=== PATIENT | male | born 1965 | race Caucasian/White ===

== ENCOUNTER 2018-12-27 12:32 | Emergency (ER) | payer OTHER ==
--- NOTE | 2018-12-27 12:50 | ER Document Report ---
ED Medical Screen (RME) - General Chief Complaint: Urinary Problem Stated Complaint: URINE PROBLEMS Time Seen by Provider: 12/27/18 12:40 Mode of Arrival: Ambulatory Information source: Patient Notes: Patient presents to the emergency department with complaints of hematuria for the past few days. Denies abdominal pain. Denies fever vomiting diarrhea. Reports a slight burning when he voids. Denies testicular pain. Gives history of melanoma and gallstones. Reports he takes medication for high blood pressure. Also reports that he recently used a device that assisted him to be to intimate with his and wraps around his penis. I have greeted and performed a rapid initial assessment of this patient. A comprehensive ED assessment and evaluation of the patient, analysis of test results and completion of the medical decision making process will be conducted by additional ED providers. Dictation of this chart was performed using voice recognition software; therefore, there may be some unintended grammatical errors. TRAVEL OUTSIDE OF THE [place] IN LAST 30 DAYS: No - Related Data Allergies/Adverse Reactions: No Known Allergies Allergy (Verified 12/27/18 12:33) Past Medical History - Social History Chew tobacco use (# tins/day): No Frequency of alcohol use: None Drug Abuse: None - Past Medical History Cardiac Medical History: Reports: Hx Hypercholesterolemia, Hx Hypertension Renal/ Medical History: Denies: Hx Peritoneal Dialysis Physical Exam - Vital signs Vitals: Temp Pulse Resp BP Pulse Ox 98.4 F 75 18 145/100 H 97 12/27/18 12:37 12/27/18 12:37 12/27/18 12:37 12/27/18 12:37 12/27/18 12:37 Course - Vital Signs Vital signs: Temp Pulse Resp BP Pulse Ox 98.4 F 75 18 145/100 H 97 12/27/18 12:37 12/27/18 12:37 12/27/18 12:37 12/27/18 12:37 12/27/18 12:37
[2018-12-27 13:03] LABS: ABSOLUTE EOSINOPHILS # (AUTO) 0.1 10^3/uL (0.0-0.6); ABSOLUTE LYMPHOCYTES (AUTO) 1.6 10^3/uL (0.5-4.7); ABSOLUTE MONOCYTES (AUTO) 0.8 10^3/uL (0.1-1.4); ABSOLUTE NEUT (AUTO) 5.4 10^3/uL (1.7-8.2); BASOPHILS % (AUTO) 0.4 % (0-2); EOSINOPHILS % (AUTO) 1.7 % (0-6); HEMATOCRIT 45.7 % (37.9-51.0); HEMOGLOBIN 16.1 g/dL (13.5-17.0); LYMPHOCYTES % (AUTO) 20.5 % (13-45); MEAN CORPUSCULAR HEMOGLOBIN 33.1 pg (27.0-33.4); MEAN CORPUSCULAR HGB CONC 35.1 g/dL (32.0-36.0); MEAN CORPUSCULAR VOLUME 94 fl (80-97); MONOCYTES % (AUTO) 10.4 % (3-13); PLATELET COUNT 253 10^3/uL (150-450); RED BLOOD COUNT 4.86 10^6/uL (4.35-5.55); TOTAL CELLS COUNTED % (AUTO) 100 %
[2018-12-27 13:21] LABS: APPEARANCE,URINE CLEAR; BILIRUBIN,URINE NEGATIVE (NEGATIVE); COLOR,URINE YELLOW; GLUCOSE, URINE NEGATIVE (NEGATIVE); KETONES,URINE NEGATIVE (NEGATIVE); URINE SPECIFIC GRAVITY 1.002
[2018-12-27 13:22] LABS: LEUKOCYTE ESTERASE,URINE NEGATIVE (NEGATIVE); NITRITE,URINE NEGATIVE (NEGATIVE); PROTEIN,URINE NEGATIVE (NEGATIVE); UROBILINOGEN,URINE NEGATIVE mg/dL (<2.0)
[2018-12-27 13:23] LABS: ALANINE AMINOTRANSFERASE 71 U/L (21-72); ALBUMIN 4.7 g/dL (3.5-5.0); ALKALINE PHOSPHATASE 39 U/L (38-126); ANION GAP 9 (5-19); ASPARTATE AMINO TRANSFERASE 41 U/L (17-59); BILIRUBIN,DIRECT 0.2 mg/dL (0.0-0.4); BILIRUBIN,TOTAL 0.6 mg/dL (0.2-1.3); BLOOD UREA NITROGEN 15 mg/dL (7-20); CALCIUM 9.4 mg/dL (8.4-10.2); CARBON DIOXIDE 31 mmol/L (22-30); CHLORIDE 97 mmol/L (98-107); GLUCOSE 100 mg/dL (75-110); LIPASE 133.5 U/L (23-300); POTASSIUM 4.4 mmol/L (3.6-5.0); TOTAL PROTEIN 7.7 g/dL (6.3-8.2)
--- NOTE | 2018-12-27 13:50 | RADIOLOGY REPORT (SQ) ---
EXAM DESCRIPTION: U/S RETROPERITON (RENAL/AORTA) COMPLETED DATE/TIME: 12/27/2018 1:38 pm REASON FOR STUDY: hematuria COMPARISON: None. TECHNIQUE: Dynamic and static grayscale images acquired of the kidneys and bladder and recorded on P ACS. Additional selected color Doppler and spectral images recorded. LIMITATIONS: Body habitus FINDINGS: RIGHT KIDNEY: Normal size, 11.6 cm in length. Normal echogenicity. No solid or suspicious masses. No hydronephrosis. No calcifications. LEFT KIDNEY: Normal size, 13 cm in length. Normal echogenicity. No solid or suspicious masses. No hy dronephrosis. No calcifications. BLADDER: No masses. OTHER FINDINGS: Echogenic liver from fatty infiltration. IMPRESSION: NORMAL RENAL AND BLADDER ULTRASOUND. TECHNICAL DOCUMENTATION: JOB ID: [id number] [employer]- All Rights Reserved Reading location - IP/workstation name: [email or web address]
--- NOTE | 2018-12-27 14:30 | ER Document Report ---
ED General - General Chief Complaint: Urinary Problem Stated Complaint: URINE PROBLEMS Time Seen by Provider: 12/27/18 12:40 Primary Care Provider: [facility] [Provider Group] - Follow up as needed Mode of Arrival: Ambulatory Notes: Patient is a pleasant 53-year-old male who presents the emergency department with a chief complaint of hematuria. He states that he noticed his hematuria about 1 week ago. Patient reports his urine color to be pink. Denies any bright red blood in his urine. Denies any pain, but states that he does have some burning when he urinates. He states that he increased his water intake and it went away. About 2 days ago he noticed that it reappeared again. Patient admits to increasing his physical activity for the past 3 weeks because he is trying to lose weight. Patient also states that he has been using a sexual toy lately since he has not been having sexual relations with his . Patient has a past medical history of melanoma, which was removed. He has been cancer free and his last PET scan was in August 2017. Patient was also seen at [facility] by the java sybase developer and diagnosed with gallstones. TRAVEL OUTSIDE OF THE [place] IN LAST 30 DAYS: No - Related Data Allergies/Adverse Reactions: No Known Allergies Allergy (Verified 12/27/18 12:33) Past Medical History - General Information source: Patient - Social History Smoking Status: Never Smoker Chew tobacco use (# tins/day): No Frequency of alcohol use: None Drug Abuse: None Family History: Reviewed & Not Pertinent Patient has suicidal ideation: No Patient has homicidal ideation: No - Past Medical History Cardiac Medical History: Reports: Hx Hypercholesterolemia, Hx Hypertension Renal/ Medical History: Denies: Hx Peritoneal Dialysis Review of Systems - Review of Systems Notes: REVIEW OF SYSTEMS: CONSTITUTIONAL : Denies recent illness. Denies recent unintentional weight loss. Denies fever, chills, or sweats. EENT: Denies eye, ear, throat, or mouth pain, discharge, or symptoms. Denies nasal or sinus congestion. CARDIOVASCULAR: Denies chest pain. RESPIRATORY: Denies shortness of breath, cough, congestion, difficulty breathing, or wheezing. GASTROINTESTINAL: Denies nausea, vomiting, and diarrhea. Denies abdominal pain. Denies constipation. GENITOURINARY: See HPI MUSCULOSKELETAL: Denies neck and back pain. Denies joint pain or swelling. SKIN: Denies rash, itchiness, or lesions HEMATOLOGIC : Denies easy bruising or bleeding. LYMPHATIC: Denies swollen, painful, enlarged glands. NEUROLOGICAL: Denies no numbness or tingling denies weakness. Denies headache. Denies altered mental status. Denies alteration in speech. PSYCHIATRIC: Denies stress, anxiety, alteration in sleep patterns, or depression. All other systems reviewed and negative. Physical Exam - Vital signs Vitals: Temp Pulse Resp BP Pulse Ox 98.4 F 75 18 145/100 H 97 12/27/18 12:37 12/27/18 12:37 12/27/18 12:37 12/27/18 12:37 12/27/18 12:37 - Notes Notes: PHYSICAL EXAMINATION: GENERAL: Appears well, healthy, well-nourished, no acute distress. HEAD: Normocephalic, atraumatic. EYES: PERRL, conjunctiva normal, all extraocular movements intact, sclera nonicteric ENT: Moist mucous membranes. NECK: Supple, no noticeable swelling, redness, rash. Normal range of motion. LUNGS: Equal breath sounds bilaterally and clear to auscultation. No wheezes rales or rhonchi. CARDIOVASCULAR: S1-S2, regular rate, regular rhythm. Radial pulses 2+, normal. ABDOMEN: Normoactive bowel sounds. Soft, nontender, no guarding, no rebound tenderness, and no masses palpated. EXTREMITIES: Normal strength and range of motion, no pitting or edema. No cyanosis. NEUROLOGICAL: Moves all extremities upon command. Strength 5/5 in all extremities. PSYCH: Normal mood, normal affect. SKIN: Warm, dry. No rash, lesions, ulcerations noted. Normal skin turgor. Course - Re-evaluation Re-evalutation: 12/27/18 14:35 Patient's hematology and chemistry are grossly unremarkable at this time. His urinalysis shows large amount of hematuria. His renal ultrasound is negative for any acute stone. There are multiple possibilities that could have caused the patient to have him at a year area. He states that he has been increasing his physical activity, has been using a sexual toy recently, and has had decreased oral intake. At this time, I do not suspect the patient has any life- threatening etiology at this time. I offered him CT of the abdomen pelvis and he asked if he can follow-up outpatient. I stated that he can follow-up with urology if he continues to have symptoms. Patient denies any pain, therefore I do not suspect any life-threatening etiology at this time. I given strict follow-up precautions. I told him that he needs to come straight back to the emergency department if he develops tc red blood. Follow-up precautions were given. Verbal discharge instructions were given to the patient. They verbalized understanding. They are stable for discharge. - Vital Signs Vital signs: Temp Pulse Resp BP Pulse Ox 98.4 F 75 18 145/100 H 97 12/27/18 12:37 12/27/18 12:37 12/27/18 12:37 12/27/18 12:37 12/27/18 12:37 - Laboratory Result Diagrams: 12/27/18 12:55 12/27/18 12:55 Laboratory results interpreted by me: 12/27/18 12/27/18 12:55 12:55 Chloride 97 L Carbon Dioxide 31 H Urine Blood LARGE H Discharge - Discharge Clinical Impression: Hematuria Qualifiers: Hematuria type: unspecified type Qualified Code(s): R31.9 - Hematuria, unspecified Condition: Stable Disposition: HOME, SELF-CARE Additional Instructions: You were seen today in the emergency department for blood in your urine. The exact cause of why you are having blood in your urine were discussed with you at bedside. Please make sure you are increasing your water intake, as this clears up your urine. Please follow-up with your primary care provider and urology if you continue to have symptoms. You can see the urologist below or one at the [facility]. If you have bright red blood in your urine, get dizzy, get lightheaded, pass out, or have any other symptoms that are worrisome to you, please return to the emergency department immediately Referrals: [facility] [Provider Group] - Follow up as needed
[2018-12-27 14:47] VITALS: BP 123/96
== END 2018-12-27 14:46 | disposition home or self-care (01) ==
LOC: ER 12:32
DX: R31.9 Hematuria, unspecified (principal); R39.198 Other difficulties with micturition; I10 Essential (primary) hypertension
CPT/HCPCS: 36415; 76770; 80053; 81001; 83690; 85025; 99284

== ENCOUNTER 2020-03-12 10:05 | Observation (INO) | payer OTHER ==
[2020-03-12] MEDS ORDERED: ONDANSETRON HCL INJ/PF 4 MG/2 ML SDV IV ONE (10:22)
[2020-03-12] MEDS ORDERED: MORPHINE SULFATE 10 MG/ML INJ IV ONE (10:22)
--- NOTE | 2020-03-12 10:22 | ER Document Report ---
ED Medical Screen (RME) - General Chief Complaint: Thumb Injury Stated Complaint: LEFT THUMB INJURY Time Seen by Provider: 03/12/20 10:08 Mode of Arrival: Ambulatory Information source: Patient Notes: 55-year-old male presented to ED for injury to the end of his left thumb. He states he was using his crossbow just before coming to the emergency room and his thumb was in the wrong place. From appearance it looks like the end of his thumb is hanging on by skin. He does have a glove on that will have to be cut off he does have a bleeding wound at this time. He states he does have high b lood pressure and cholesterol. He is alert oriented respirations regular nonlabored and very anxious about his thumb. I have greeted and performed a rapid initial assessment of this patient. A c omprehensive ED assessment and evaluation of the patient, analysis of test results and completion of medical decision making process will be conducted by an additional ED providers. TRAVEL OUTSIDE OF THE [place] IN LAST 30 DAYS: No - Related Data Allergies/Adverse Reactions: No Known Allergies Allergy (Verified 12/27/18 12:33) Past Medical History - Past Medical History Cardiac Medical History: Reports: Hx Hypercholesterolemia, Hx Hypertension Renal/ Medical History: Denies: Hx Peritoneal Dialysis
[2020-03-12] MEDS ORDERED: NORMAL SALINE 1000 ML 1,000 ML IV ONE (10:23)
[2020-03-12] MEDS ORDERED: LIDOCAINE 1% INJ-PF (10 MG/ML) 30 ML SDV INJ ONE (10:41)
--- NOTE | 2020-03-12 10:41 | ER Document Report ---
ED Hand/Wrist Injury - General Chief Complaint: Thumb Injury Stated Complaint: LEFT THUMB INJURY Time Seen by Provider: 03/12/20 10:08 Mode of Arrival: Ambulatory Notes: HPI: Patient is a 55-year-old male that was using about an hour for the first time he had his left hand on the handle when he released the cord causing the cord to hit the dorsal aspect of his distal left thumb. This caused a large laceration to the dorsal aspect of the left thumb. Tetanus is up-to-date. Patient last ate or drank yesterday evening. Patient is right-handed. ROS: See HPI Reviewed vital signs and nursing note as charted by RN. PHYSICAL EXAM: CONSTITUTIONAL: Alert and oriented and responds appropriately to questions. Well-appearing; well-nourished HEAD: Normocephalic; atraumatic EXT: Patient has a laceration to the dorsal medial aspect of his left thumb around the PIP joint. Extensive irregular flap-like lesion present SKIN: See above TRAVEL OUTSIDE OF THE [place] IN LAST 30 DAYS: No - Related Data Allergies/Adverse Reactions: No Known Allergies Allergy (Verified 12/27/18 12:33) Past Medical History - General Information source: Patient - Social History Smoking Status: Unknown if Ever Smoked Family History: Reviewed & Not Pertinent - Past Medical History Cardiac Medical History: Reports: Hx Hypercholesterolemia, Hx Hypertension Renal/ Medical History: Denies: Hx Peritoneal Dialysis Physical Exam - Vital signs Vitals: Temp Pulse Resp BP Pulse Ox 98.3 F 117 H 24 H 174/117 H 99 03/12/20 10:10 03/12/20 10:10 03/12/20 10:10 03/12/20 10:10 03/12/20 10:10 Course - Re-evaluation Re-evalutation: Given the above history and physical, pain medications were provided and we will provide a gram of Ancef. We will perform an x-ray for further evaluation. Patient is able to flex and extend at the digit. Unable to test strength currently secondary to pain with no current digital block present. Patient does have sensation and capillary refill to the distal tip. 03/12/20 10:41 Xray as recorded. I did consult the orthopedic on-call. 03/12/20 11:50 Dr. Haywood the orthopedic on-call came down to the patient and examined him at bedside. I was in the room for the examination. He would like the patient placed in a nonadherent kerlex dressing with a bulky dressing. I have provided 2 g of IV Ancef and have ordered a CBC and chemistry. He would meet the patient to his service and take the patient to the operating room. - Vital Signs Vital signs: Temp Pulse Resp BP Pulse Ox 98.3 F 117 H 24 H 174/117 H 99 03/12/20 10:10 03/12/20 10:10 03/12/20 10:10 03/12/20 10:10 03/12/20 10:10 Discharge - Discharge Clinical Impression: Fracture of thumb, left, open Qualifiers: Encounter type: initial encounter Phalanx: distal Fracture alignment: displaced Qualified Code(s): S62.522B - Displaced fracture of distal phalanx of left thumb, initial encounter for open fracture Condition: Fair Disposition: ADMITTED OBSERVATION Admitting Provider: Ortho - [facility] Admitted: Surgical Floor
--- NOTE | 2020-03-12 10:54 | RADIOLOGY REPORT (SQ) ---
EXAM DESCRIPTION: FINGER LEFT IMAGES COMPLETED DATE/TIME: 03/12/2020 10:21 am REASON FOR STUDY: laceration probable fracture left thumb COMPARISON: None. NUMBER OF VIEWS: Three views. TECHNIQUE: AP, lateral, and oblique images acquired of the left thumb. LIMITATIONS: None. FINDINGS: MINERALIZATION: Normal. BONES: Badly comminuted fracture of the distal phalanx of the thumb. At least 1 bony fragment appear s to be through the skin. No intra-articular extension. SOFT TISSUES: Soft tissue defects. OTHER: No other significant finding. IMPRESSION: Badly comminuted fracture of the distal phalanx of the thumb with at least 1 bony fragme nt through the skin. TECHNICAL DOCUMENTATION: JOB ID: [id number] [employer]- All Rights Reserved Reading location - IP/workstation name: [email or web address]
[2020-03-12] MEDS ORDERED: CEFAZOLIN 2 GM/D5W RTU 2 GM/50 ML RTUPB IV SCH (12:00)
--- NOTE | 2020-03-12 12:13 | PDOC H&P ---
History of Present Illness Patient complains of: Left thumb traumatic injury History of Present Illness: INDY DELACRUZ is a 55 year old right hand dominant male who presents to the emergency room following an injury to his left thumb. The patient was using a new hunting bow and the cord inadvertently released onto the dorsum of his left thumb causing an open wound with comminuted fracture of the distal phalanx. Past Medical History Cardiac Medical History: Reports: Hyperlipidema, Hypertension Pulmonary Medical History: Denies: None, Asthma, Bronchitis, Chronic Obstructive Pulmonary Disease (COPD), Intubation, Pneumonia, Respiratory Failure, Sleep Apnea, Tuberculosis, Other EENT Medical History: Denies: None, Cataracts, Eyes, Ears, Nose, Throat, Other Endocrine Medical History: Denies: None, Diabetes Mellitus Type 1, Diabetes Mellitus Type 2, Gestational Diabetes, Hyperthyroidism, Hypothyroidism, Obesity, Other Renal/ Medical History: Denies: None, Chronic Kidney Disease, End Stage Renal Disease, Nephrolithiasis, Other Malignancy Medical History: Reports: Skin Cancer - Melanoma post excision GI Medical History: Denies: None, Cirrhosis, Crohn's Disease, Diverticulitis, Gastroesophageal Reflux Disease, Hepatitis, Hiatal Hernia, Peptic Ulcer Disease, Ulcerative Colitis, Other Musculoskeltal Medical History: Denies: None, Arthritis, Fibromyalgia, Gout, Other Psychiatric Medical History: Denies: None, Alcohol Dependency, Attention Deficit Hyperactivity Disorder, Bipolar Disorder, Dementia, Depression, General Anxiety Disorder, Personality Disorder, Post Traumatic Stress Disorder, Schizoaffective Disorder, Substance Abuse, Tobacco Dependency, Other Traumatic Medical History: Denies: None, Gunshot Wound, Pneumothorax, Stab Wound, Traumatic Brain Injury, Other Hematology: Denies: None, Anemia, Hemophilia, Sickle Cell Disease, Bleeding Tendencies, Heparin Induced Thrombocytopenia, Neutropenia, Other Infectious Medical History: Denies: None, Clostridium Difficile, Hepatitis B, Hepatitis C, HIV, Methicillin-Resistant Staph Aureus, Vancomycin-Resistant Enterococci, Other Past Surgical History Past Surgical History: Reports: Other - Melanoma excision with lymph node dissection Social History Lives with: Spouse/Significant other Smoking Status: Unknown if Ever Smoked Frequency of Alcohol Use: Occasional Hx Recreational Drug Use: No Hx Prescription Drug Abuse: No Family History Family History: Reviewed & Not Pertinent Parental Family History Reviewed: Yes Children Family History Reviewed: Unknown Sibling(s) Family History Reviewed.: Unknown Medication/Allergy Allergies/Adverse Reactions: No Known Allergies Allergy (Verified 12/27/18 12:33) Review of Systems ROS unobtainable: Other - As per HPI Physical Exam Vital Signs: Temp Pulse Resp BP Pulse Ox 98.3 F 117 H 24 H 174/117 H 99 03/12/20 10:10 03/12/20 10:10 03/12/20 10:10 03/12/20 10:10 03/12/20 10:10 Intake & Output 03/11/20 03/12/20 03/13/20 06:59 06:59 06:59 Weight 100.6 kg General appearance: PRESENT: no acute distress, well-developed, well-nourished Head exam: PRESENT: atraumatic, normocephalic Eye exam: PRESENT: conjunctiva pink, EOMI, PERRLA. ABSENT: scleral icterus Mouth exam: PRESENT: moist, tongue midline Throat exam: ABSENT: post pharyngeal erythema, tonsillar erythema, tonsillar exudate, tonsillogmegaly, other Neck exam: ABSENT: carotid bruit, JVD, lymphadenopathy, thyromegaly Respiratory exam: PRESENT: clear to auscultation billie. ABSENT: rales, rhonchi, wheezes Cardiovascular exam: PRESENT: RRR. ABSENT: diastolic murmur, rubs, systolic murmur Pulses: PRESENT: normal dorsalis pedis pul GI/Abdominal exam: PRESENT: normal bowel sounds, soft. ABSENT: distended, guarding, mass, organolmegaly, rebound, tenderness Rectal exam: PRESENT: deferred Musculoskeletal exam: PRESENT: other - There is a stellate laceration of the skin on the dorsal phalanx of the thumb. Underlying bone is visible. There is fragmentation of the nail matrix. Sensation is intact at the tip of the digit. Results Impressions: Finger X-Ray 03/12/20 10:09 IMPRESSION: Badly comminuted fracture of the distal phalanx of the thumb with at least 1 bony fragment through the skin. Assessment & Plan - Diagnosis (2) Fracture of thumb, left, open Qualifiers: Encounter type: initial encounter Phalanx: distal Fracture alignment: displaced Qualified Code(s): S62.522B - Displaced fracture of distal phalanx of left thumb, initial encounter for open fracture - Time Time Spent: 30 to 50 Minutes Anticipated Discharge Disposition: Home, Self Care Anticipated Discharge Timeframe: within 24 hours - Plan Summary Plan Summary: The patient will be admitted to observation and be administered perioperative antibiotics. The patient is scheduled for the operating room tomorrow morning for digit repair versus revision amputation. Risk, benefits, and alternatives were discussed with the patient and his . An opportunity for questions was provided. All questions were answered to his satisfaction. The patient expressed understanding and wishes to proceed.
[2020-03-12] MEDS ORDERED: ACETAMINOPHEN 325 MG TABLET PO PRN (12:22)
[2020-03-12] MEDS ORDERED: HYDROMORPHONE HCL INJ/PF 2 MG/ML AMPULE IV PRN ×2 (12:24→18:35)
[2020-03-12 12:27] LABS: ABSOLUTE EOSINOPHILS # (AUTO) 0.1 10^3/uL (0.0-0.6); ABSOLUTE LYMPHOCYTES (AUTO) 0.9 10^3/uL (0.5-4.7); ABSOLUTE MONOCYTES (AUTO) 0.8 10^3/uL (0.1-1.4); BASOPHILS % (AUTO) 0.4 % (0-2); EOSINOPHILS % (AUTO) 1.4 % (0-6); HEMATOCRIT 43.6 % (37.9-51.0); HEMOGLOBIN 15.6 g/dL (13.5-17.0); LYMPHOCYTES % (AUTO) 11.1 % (13-45); MEAN CORPUSCULAR HEMOGLOBIN 34.4 pg (27.0-33.4); MEAN CORPUSCULAR HGB CONC 35.7 g/dL (32.0-36.0); MEAN CORPUSCULAR VOLUME 96 fl (80-97); MONOCYTES % (AUTO) 10.5 % (3-13); PLATELET COUNT 210 10^3/uL (150-450); RED BLOOD COUNT 4.53 10^6/uL (4.35-5.55); RED CELL DISTRIBUTION WIDTH 13.3 % (11.5-14.0); SEGMENTED NEUTROPHILS % (AUTO) 76.6 % (42-78); TOTAL CELLS COUNTED % (AUTO) 100 %; WHITE BLOOD COUNT 7.9 10^3/uL (4.0-10.5)
[2020-03-12 12:36] LABS: ALBUMIN 4.4 g/dL (3.5-5.0); ALKALINE PHOSPHATASE 52 U/L (38-126); ANION GAP 9 (5-19); ASPARTATE AMINO TRANSFERASE 34 U/L (17-59); BILIRUBIN,DIRECT 0.2 mg/dL (0.0-0.4); BILIRUBIN,TOTAL 0.6 mg/dL (0.2-1.3); BLOOD UREA NITROGEN 16 mg/dL (7-20); CALCIUM 9.3 mg/dL (8.4-10.2); CARBON DIOXIDE 29 mmol/L (22-30); CHLORIDE 103 mmol/L (98-107); GLUCOSE 114 mg/dL (75-110); POTASSIUM 4.7 mmol/L (3.6-5.0); TOTAL PROTEIN 7.3 g/dL (6.3-8.2)
[2020-03-12] MEDS: OXYCODONE-ACETAMINOPHEN 5-325 MG TABLET PO PRN ×3 (13:27→21:55)
[2020-03-12] MEDS: NORMAL SALINE 1000 ML 1,000 ML IV PRN (14:43)
[2020-03-12] MEDS: CEFAZOLIN SODIUM 2 GM in DEXTROSE 5%-WATER 100 ML IV SCH (17:12)
[2020-03-12] MEDS ORDERED: DEXTROSE 50%-WATER 25 GM/50 ML DISP.SYRIN IV PRN ×2 (18:09)
[2020-03-12] MEDS ORDERED: GLUCAGON,HUMAN RECOMB 1 MG INJ SUBCUT PRN (18:09)
[2020-03-12] MEDS ORDERED: DEXTROSE 40% GEL 15 GM TUBE PO PRN ×2 (18:09)
[2020-03-13] MEDS: NORMAL SALINE 1000 ML 1,000 ML IV PRN (00:45)
[2020-03-13] MEDS: CEFAZOLIN SODIUM 2 GM in DEXTROSE 5%-WATER 100 ML IV SCH ×2 (01:30→11:01)
[2020-03-13] MEDS: OXYCODONE-ACETAMINOPHEN 5-325 MG TABLET PO PRN (03:31)
[2020-03-13] MEDS ORDERED: MIDAZOLAM 2 MG/2 ML INJ ONE (07:34)
[2020-03-13] MEDS ORDERED: FENTANYL CITRATE INJ/PF 250 MCG/5 ML AMPULE ONE (07:34)
[2020-03-13] MEDS ORDERED: EPHEDRINE SULFATE INJ 50 MG/1 ML AMPULE ONE (07:34)
[2020-03-13] MEDS ORDERED: ONDANSETRON HCL INJ/PF 4 MG/2 ML SDV ONE (07:35)
[2020-03-13] MEDS ORDERED: PROPOFOL INJ 200 MG/20 ML VIAL IV ONE (07:35)
[2020-03-13] MEDS ORDERED: DEXAMETHASONE SOD PHOSPHATE INJ 4 MG/1 ML VIAL ONE (07:35)
[2020-03-13] MEDS ORDERED: FENTANYL CITRATE INJ/PF 100 MCG/2 ML AMPUL IV PRN ×3 (08:46)
[2020-03-13] MEDS ORDERED: MORPHINE SULFATE 10 MG/ML INJ IV PRN (08:46)
[2020-03-13] MEDS ORDERED: OXYCODONE-ACETAMINOPHEN 5-325 MG TABLET PO PRN (08:46)
[2020-03-13] MEDS ORDERED: PROMETHAZINE HCL INJ 25 MG/1 ML VIAL IV PRN ×2 (08:46)
[2020-03-13] MEDS ORDERED: MEPERIDINE HCL/PF INJ 25 MG/1 ML DISP.SYRIN IV PRN (08:46)
[2020-03-13] MEDS ORDERED: DIPHENHYDRAMINE HCL 50 MG/ML VIAL IV PRN (08:46)
[2020-03-13] MEDS: BUPIVACAINE HCL 0.5 % INJ/PF 30 ML SDV ONE ×2 (09:00→09:26)
[2020-03-13] MEDS ORDERED: LISINOPRIL 10 MG TABLET PO SCH (10:00)
--- NOTE | 2020-03-13 10:02 | Operative Report ---
Operative Report DATE OF SURGERY: 03/13/20 PREOPERATIVE DIAGNOSIS: 1. Left thumb open distal phalanx fracture. 2. Left thumb nailbed laceration. 3. Left thumb complex open wound POSTOPERATIVE DIAGNOSIS: Same OPERATION: 1. Incision and debridement left thumb open fracture including removal of skin, subcutaneous tissue, muscle and bone. 2. Open reduction internal fixation left thumb distal phalanx open fracture. 3. Left thumb nailbed repair. 4. Left thumb complex wound closure SURGEON: LELA NGUYEN ANESTHESIA: GA COMPLICATIONS: None ESTIMATED BLOOD LOSS: Minimal PROCEDURE: Indications for procedure: The patient is a pleasant 55-year-old man who sustained a severe injury to his left thumb when a crossbow accidentally closed on the distal phalanx. Description of procedure: Following the induction of a general anesthetic and administration of preoperative antibiotics, the patient was positioned supine on the operating room table. All bony prominences were padded. The left upper extremity was sterilely prepped with Betadine scrub and preparatory solution. The arm was draped in standard fashion. The left upper extremity was exsanguinated and the tourniquet inflated to 250 mmHg. There was a complex stellate wound with multiple fragments of skin on the dorsum of the thumb. Small pieces of devitalized skin were removed sharply. Devitalized subcutaneous tissue and fascia were also sharply excised. Small bone fragments which were devitalized were also removed. Copious irrigation was then performed. This improved visualization. The fracture was then reduced and a retrograde 4.5 Carlos wire was driven from the tip of the distal phalanx across the severe comminution in the midportion of the phalanx and into the central aspect of the proximal portion of the distal phalanx and across the distal interphalangeal joint into the proximal phalanx. This stabilized the thumb. We next turned our attention to the nailbed repair. The nail bed had been completely torn at its base. It was repaired side to side and centrally back to tissue on the dorsum of the proximal phalanx using interrupted 3-0 Monocryl suture. Next we repaired the complex, stellate wound. The wound was circumferential on the thumb from the volar aspect on the radial margin across the dorsum of the thumb. The ulnar aspect of the thumb was relatively uninvolved. Multiple sutures were used to inset fragments of skin to provide wound coverage. Lastly, a second retrograde Carlos wire was driven from the tip of the distal phalanx across the severe comminution and across the distal interphalangeal joint. Both Carlos wires were cut short and placed beneath the skin. This was done to allow the Carlos wires to remain in the digit for a prolonged period of time to allow for consolidation of the comminuted fracture. Marcaine was injected around the wound and as a digital block for postoperative analgesia. Xeroform gauze and a bulky sterile dressing was then applied. A digital splint was then applied to the thumb. The patient tolerated the procedure well without complication was brought recovery in stable condition. The patient will be discharged home later today on prophylactic Keflex. He will receive oral Percocet for pain. He will follow-up in the office in 7 to 10 days for a wound check.
--- NOTE | 2020-03-13 10:04 | Discharge Summary ---
Discharge Summary (SDC) - Discharge Final Diagnosis: 1. Left thumb open distal phalanx fracture 2. Left thumb nailbed laceration 3. Left thumb complex wound Date of Surgery: 03/13/20 Condition: Good Discharge Diet: As Tolerated Respiratory Treatments at Home: Deep Breathing/Coughing Discharge Activity: Activity As Tolerated Home Care Assistance: Provided by Family Report the Following to Your Physician Immediately: Fever over 101 Degrees, Drainage-Foul Smelling
--- NOTE | 2020-03-13 10:11 | RADIOLOGY REPORT (SQ) ---
EXAM DESCRIPTION: FINGER LEFT; NO CHG FLUORO IMAGES COMPLETED DATE/TIME: 03/13/2020 8:39 am REASON FOR STUDY: LEFT THUMB COMPARISON: Left finger radiograph 03/12/2020. FLUOROSCOPY TIME: 0.28 seconds 2 images saved to PACS. TECHNIQUE: Intra-operative images acquired during surgical procedure to evaluate progress. NUMBER OF IMAGES: 2 LIMITATIONS: None. FINDINGS: Placement of 2 K-wires traversing the distal 1st digit phalanx fracture fragment. IMPRESSION: IMAGE(S) OBTAINED DURING PROCEDURE. COMMENT: Quality ID 145: Final reports for procedures using fluoroscopy that document radiation exp osure indices, or exposure time and number of fluorographic images (if radiation exposure indices are not available) Please consult full operative report of the attending physician for description of the procedure. TECHNICAL DOCUMENTATION: JOB ID: [id number] 2010 [employer]- All Rights Reserved Reading location - IP/workstation name: [email or web address]
--- NOTE | 2020-03-13 10:11 | RADIOLOGY REPORT (SQ) ---
EXAM DESCRIPTION: FINGER LEFT; NO CHG FLUORO IMAGES COMPLETED DATE/TIME: 03/13/2020 8:39 am REASON FOR STUDY: LEFT THUMB COMPARISON: Left finger radiograph 03/12/2020. FLUOROSCOPY TIME: 0.28 seconds 2 images saved to PACS. TECHNIQUE: Intra-operative images acquired during surgical procedure to evaluate progress. NUMBER OF IMAGES: 2 LIMITATIONS: None. FINDINGS: Placement of 2 K-wires traversing the distal 1st digit phalanx fracture fragment. IMPRESSION: IMAGE(S) OBTAINED DURING PROCEDURE. COMMENT: Quality ID 145: Final reports for procedures using fluoroscopy that document radiation exp osure indices, or exposure time and number of fluorographic images (if radiation exposure indices are not available) Please consult full operative report of the attending physician for description of the procedure. TECHNICAL DOCUMENTATION: JOB ID: [id number] 2010 [employer]- All Rights Reserved Reading location - IP/workstation name: [email or web address]
[2020-03-13] MEDS ORDERED: SUCCINYLCHOLINE CHLORIDE INJ 200 MG/10 ML VIAL ONE (11:02)
[2020-03-13] MEDS ORDERED: PHENYLEPHRINE HCL INJ/PF 10 MG/1 ML SDV ONE (11:02)
[2020-03-13 14:14] VITALS: BP 135/78
== END 2020-03-13 14:37 | disposition home or self-care (01) ==
LOC: ER 10:05 → EH 12:12 → 5 15:58
PROVIDERS: ADMIT Orthopaedic Surgery; ATTEND Orthopaedic Surgery
DX: S62.522B Displaced fracture of distal phalanx of left thumb, initial encounter for open fracture (principal); W22.8XXA Striking against or struck by other objects, initial encounter; Y93.89 Activity, other specified; Z03.818 Encounter for observation for suspected exposure to other biological agents ruled out; I10 Essential (primary) hypertension; E78.5 Hyperlipidemia, unspecified; M10.9 Gout, unspecified; Z79.899 Other long term (current) drug therapy; Z85.820 Personal history of malignant melanoma of skin
CPT/HCPCS: 11012; 11760; 99285; 96375; 96365; 36415; 85025; 87635; 80053; 73140 ×2; 01830; G0378 ×3; C1713; J2250; J3490 ×3; J0690 ×3; J1100; J3010; J2270; J2370; J0330; J2405 ×2; J7060 ×2; J7030 ×2; J2704; C9803